=== PATIENT | male | born 2005 | race African-American/Black ===

== ENCOUNTER 2024-06-01 06:31 | Emergency (ER) | payer BC ==
[~2024-06-01] VITALS: Ht 180.3 cm; Wt 75.0 kg
[2024-06-01 06:33] VITALS: BP 103/36; PULSE 52; RESP 18; TEMP 97.7; O2SAT 98
[2024-06-01] MEDS: PROPARACAINE HCL 0.5% 15 ML OPHTHALMIC SOLUTION OS ONE (07:41)
[2024-06-01] MEDS: FLUORESCEIN SODIUM 1 MG STRIP OS ONE (07:42)
[2024-06-01] MEDS ORDERED: IBUP-1492 PO (07:53)
[2024-06-01] MEDS ORDERED: CIPR2.5D17 OS (07:53)
== END 2024-06-01 08:05 | disposition home or self-care (01) ==
LOC: EMS 06:35
DX: S05.02XA Injury of conjunctiva and corneal abrasion without foreign body, left eye, initial encounter (principal); F12.90 Cannabis use, unspecified, uncomplicated; X58.XXXA Exposure to other specified factors, initial encounter; Y93.89 Activity, other specified; Y92.89 Other specified places as the place of occurrence of the external cause; Y99.8 Other external cause status
CPT/HCPCS: 99283